=== PATIENT | female | born 1995 | race Caucasian/White ===

== ENCOUNTER 2020-12-21 05:52 | Inpatient (IN) ==
[2020-12-21] MEDS ORDERED: LACTATED RINGERS 500 ML IV PRN (06:03)
[2020-12-21] MEDS ORDERED: ONDANSETRON 4 MG/2 ML VIAL IV PRN ×2 (06:03→20:51)
[2020-12-21] MEDS ORDERED: BUTORPHANOL 2 MG/ML VIAL IV PRN (06:03)
[2020-12-21] MEDS ORDERED: LACTATED RINGERS 1,000 ML IV ONE ×2 (06:03→09:10)
[2020-12-21] MEDS ORDERED: OXYTOCIN/LR 20 UNIT/1,000 ML BAG IV SCH (06:30)
[2020-12-21] MEDS: LACTATED RINGERS 1,000 ML IV SCH ×3 (06:41→23:59)
[2020-12-21 06:45] LABS: Basophils % 0.4 % (0.0-0.8); Eosinophils # 0.1 10*3/uL (0.0-0.87); Eosinophils % 1.5 % (0.00-10.9); Hematocrit 29.3 VOL% (35.7-47.0); Hemoglobin 8.5 GM/DL (12.0-16.0); Immature Granulocytes % 0.4 %; Immature Granulocytes Absolute 0.03 #; Lymphocytes # 2.4 10*3/uL (1.4-4.0); Mean Corpuscular Volume 74.6 FL (87-102); Mean Platelet Volume 10.5 FL (9.6-12.0); Monocytes % 7.6 % (1.7-12.7); NRBC # 0.02 10*3/uL; Neutrophils % 61.1 % (38.7-73.9); Platelet Count 223 T/CUMM (130-400); Red Blood Count 3.93 MC/CUMM (3.8-5.5); Red Cell Distribution Width 16.7 % (9.3-17.3); White Blood Count 8.2 T/CUMM (4-12)
[2020-12-21 07:10] LABS: Eosinophils 3 % (0-10); Hypochromasia 1+; Lymphocytes 26 % (20-55); Microcytosis 1+; Platelet Estimate Adequate; Segmented Neutrophils 68 % (50-85); Total Cells Counted 100
[2020-12-21 07:16] LABS: Albumin 2.5 G/DL (3.4-5.0); Calcium 8.9 MG/DL (8.5-10.1); Osmolality,Calculated 277.3 MOS/KG (273-304); Potassium 3.6 MMOL/L (3.5-5.1); Total Protein 6.7 G/DL (6.4-8.2)
[2020-12-21] MEDS ORDERED: ePHEDrine 50 MG/ML VIAL IV PRN (09:10)
[2020-12-21] MEDS ORDERED: PROMETHAZINE 25 MG/1 ML VIAL IM ONE (09:10)
[2020-12-21] MEDS ORDERED: NALOXONE 0.4 MG/ML VIAL IV PRN (09:10)
[2020-12-21] MEDS ORDERED: diphenhydrAMINE 50 MG/1 ML VIAL IV PRN ×2 (09:10)
[2020-12-21] MEDS ORDERED: CITRIC ACID/SODIUM CITRATE 30 ML UDCUP PO ONE (09:10)
[2020-12-21] MEDS ORDERED: hydrOXYzine HCL 25 MG/1 ML VIAL IM PRN (09:10)
[2020-12-21] MEDS ORDERED: FAMOTIDINE 20 MG TABLET PO ONE (09:10)
[2020-12-21] MEDS ORDERED: fentaNYL 2 MCG/ROPIV 0.2% EPID 100 ML EPIDURAL SCH (09:30)
[2020-12-21] MEDS ORDERED: FAMOTIDINE 20 MG/2 ML VIAL IV ONE (09:53)
[2020-12-21 12:39] LABS: Mucus,Urine Occasional /LPF (Occasional); RBC,Urine 1 /HPF (0-4); Squamous Epithelial Cell,Urine Occasional /HPF (0-10)
[2020-12-21 12:40] LABS: Bilirubin,Urine Negative (Negative); Blood, Urine Negative (Negative); Glucose,Urine (UA) Negative (Negative); Ketones,Urine 100 mg/dL (Negative); Nitrite,Urine Negative (Negative); Protein,Urine 30 MG/DL; Urine Appearance Clear (Clear); Urine Color Yellow (Yellow); Urine Specific Gravity 1.015 (1.001-1.035); Urine Urobilinogen 0.2 EU/DL (0.2-1.0)
[2020-12-21] MEDS ORDERED: ceFAZolin 2,000 MG in PREMIX 1 EACH IV ONE (19:14)
[2020-12-21] MEDS ORDERED: CARBOPROST TROMETHAMINE 250 MCG/ML AMP IM ONE (19:20)
[2020-12-21] MEDS ORDERED: TRANEXAMIC ACID 1,000 MG/10 ML VIAL ONE (19:21)
[2020-12-21] MEDS ORDERED: miSOPROStoL 200 MCG TABLET ONE (19:21)
[2020-12-21] MEDS ORDERED: METHYLERGONOVINE 0.2 MG/1 ML AMP ONE (19:21)
[2020-12-21] MEDS ORDERED: OXYTOCIN/LR 30 UNIT/1,000 ML BAG IV ONE (19:33)
[2020-12-21] MEDS ORDERED: OXYTOCIN 10 UNIT/ML VIAL ONE (19:33)
[2020-12-21] MEDS ORDERED: OXYTOCIN 10 UNIT/ML VIAL IM ONE (19:34)
[2020-12-21] MEDS ORDERED: LIDOCAINE MPF 2% /EPI 20 ML VIAL ONE (19:35)
[2020-12-21 20:23] LABS: Cord Arterial Blood HCO3 20.5 MMOL/L
[2020-12-21 20:27] LABS: Cord Venous Blood HCO3 21.7 MMOL/L
[2020-12-21] MEDS ORDERED: OXYTOCIN/LR 20 UNIT/1,000 ML BAG IV ONE (20:51)
[2020-12-21] MEDS ORDERED: ACETAMINOPHEN 325 MG TABLET PO PRN (20:51)
[2020-12-21] MEDS ORDERED: MAGNESIUM HYDROXIDE SUSP 30 ML UDCUP PO PRN (20:51)
[2020-12-21] MEDS ORDERED: RHO(D) IMMUNE GLOBULIN 300 MCG SYRINGE IM ONE (20:51)
[2020-12-21] MEDS ORDERED: LACTATED RINGERS 1,000 ML IV SCH (21:00)
[2020-12-21] MEDS ORDERED: HYDROmorphone 2 MG/1 ML VIAL IV PRN (22:00)
[2020-12-21] MEDS: ACETAMINOPHEN 500 MG TABLET PO SCH (22:20)
[2020-12-22] MEDS: DOCUSATE SODIUM 100 MG CAPSULE PO SCH ×3 (01:15→21:14)
[2020-12-22] MEDS: KETOROLAC 30 MG/1 ML VIAL IV SCH ×2 (01:57→10:19)
[2020-12-22] MEDS: ACETAMINOPHEN 500 MG TABLET PO SCH ×3 (05:07→17:22)
[2020-12-22 05:31] LABS: Basophils % 0.4 % (0.0-0.8); Eosinophils % 0.3 % (0.00-10.9); Hemoglobin 7.7 GM/DL (12.0-16.0); Immature Granulocytes % 0.7 %; Immature Granulocytes Absolute 0.07 #; Lymphocytes # 2.1 10*3/uL (1.4-4.0); Lymphocytes % 19.2 % (21.3-54.2); Mean Corpuscular HGB Conc 29.6 GM/DL (32-36); Mean Corpuscular Volume 74.3 FL (87-102); Mean Platelet Volume 11.2 FL (9.6-12.0); Monocytes % 7.5 % (1.7-12.7); NRBC # 0.03 10*3/uL; Neutrophils % 71.9 % (38.7-73.9); Platelet Count 203 T/CUMM (130-400); Red Cell Distribution Width 16.7 % (9.3-17.3); White Blood Count 10.7 T/CUMM (4-12)
[2020-12-22 09:44] LABS: Basophils % 0.4 % (0.0-0.8); Eosinophils % 0.4 % (0.00-10.9); Hematocrit 25.7 VOL% (35.7-47.0); Hemoglobin 7.7 GM/DL (12.0-16.0); Immature Granulocytes % 0.6 %; Immature Granulocytes Absolute 0.06 #; Lymphocytes # 1.7 10*3/uL (1.4-4.0); Lymphocytes % 17.2 % (21.3-54.2); Mean Corpuscular Volume 72.8 FL (87-102); Mean Platelet Volume 10.2 FL (9.6-12.0); Monocytes % 7.7 % (1.7-12.7); NRBC # 0.02 10*3/uL; Neutrophils % 73.7 % (38.7-73.9); Platelet Count 177 T/CUMM (130-400); Red Blood Count 3.53 MC/CUMM (3.8-5.5); Red Cell Distribution Width 16.9 % (9.3-17.3); White Blood Count 9.7 T/CUMM (4-12)
[2020-12-22] MEDS ORDERED: SODIUM CHLORIDE 0.9% 1,000 ML IV PRN (10:01)
[2020-12-22] MEDS: MULTIVITAMIN (PRENATAL) TABLET PO SCH (10:07)
[2020-12-22] MEDS: FERROUS SULFATE 325 MG TABLET PO SCH ×3 (10:07→21:14)
[2020-12-22] MEDS: METOCLOPRAMIDE 10 MG TABLET PO SCH ×3 (10:07→21:15)
[2020-12-22] MEDS: MAGNESIUM HYDROXIDE SUSP 30 ML UDCUP PO SCH ×2 (10:24→21:14)
[2020-12-22 22:29] LABS: Hemoglobin 9.4 GM/DL (12.0-16.0)
[2020-12-23] MEDS: METOCLOPRAMIDE 10 MG TABLET PO SCH ×4 (02:14→17:14)
[2020-12-23] MEDS: IBUPROFEN 800 MG TABLET PO PRN ×2 (04:35→18:56)
[2020-12-23] MEDS: MULTIVITAMIN (PRENATAL) TABLET PO SCH (08:28)
[2020-12-23] MEDS: SIMETHICONE CHEW 80 MG TABLET PO PRN ×2 (08:28→14:45)
[2020-12-23] MEDS: FERROUS SULFATE 325 MG TABLET PO SCH ×3 (08:28→20:57)
[2020-12-23] MEDS: DOCUSATE SODIUM 100 MG CAPSULE PO SCH ×2 (08:28→21:04)
[2020-12-23] MEDS: MAGNESIUM HYDROXIDE SUSP 30 ML UDCUP PO SCH ×2 (08:28→21:04)
[2020-12-23] MEDS: oxyCODONE/ACETAMINOPHEN 5-325 MG TABLET PO PRN ×2 (14:45→23:15)
[2020-12-24] MEDS: IBUPROFEN 800 MG TABLET PO PRN (03:55)
[2020-12-24] MEDS: MULTIVITAMIN (PRENATAL) TABLET PO SCH (10:22)
[2020-12-24] MEDS: FERROUS SULFATE 325 MG TABLET PO SCH ×2 (10:22→16:19)
[2020-12-24] MEDS: DOCUSATE SODIUM 100 MG CAPSULE PO SCH (10:22)
[2020-12-24] MEDS ORDERED: DIPH/TET/ACEL PERT BOOSTER VACCINE 0.5 ML VIAL IM ONE (12:16)
[2020-12-24] MEDS: oxyCODONE/ACETAMINOPHEN 5-325 MG TABLET PO PRN (13:42)
[2020-12-24 15:57] VITALS: BP 116/90
== END 2020-12-24 16:45 | disposition home or self-care (01) | DRG 788 ==
LOC: N.LD 05:52 → N.OB 12-22 00:20
PROVIDERS: ADMIT Obstetrics & Gynecology; ATTEND Obstetrics & Gynecology
PROC: LDCSECT (ICD-10-PCS; 2020-12-21 19:05)